=== PATIENT | female | born 1940 | race Caucasian/White ===

== ENCOUNTER 2019-10-14 14:09 | Emergency (ER) | payer BC, MEDICARE ==
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
--- OUTSIDE RECORDS SUMMARY | 2019-10-14 14:44 | XMS REPORT | Continuity of Care Document ---
:1940 External Reference #:[id number] Author Name Chelle Lin MD Address [address] [place] [address] Problems Active Problems Provider Date Benign essential hypertension Chelle Lin MD Onset: 02/16/2007 Pure hypercholesterolemia Chelle Lin MD Onset: 02/16/2007 Chronic pain syndrome Chelle Lin MD Onset: 04/16/2013 Peptic reflux disease Chelle Lin MD Onset: 05/21/2007 Generalized anxiety disorder Chelle Lin MD Onset: 03/03/2015 Type 2 diabetes mellitus Chelle Lin MD Onset: 08/07/2017 Mixed hyperlipidemia Chelle Lin MD Onset: 01/02/2017 Social History Type Date Description Comments Sex Unknown Tobacco Use Start: Unknown Patient is a current cigarette smoker, smokes every day Cigarette Use Pack Years - 30 Tobacco Use Start: Unknown Patient is a current smoker, smokes every day Smoking Status Reviewed: 09/13/19 Patient is a current smoker, smokes every day Allergies, Adverse Reactions, Alerts Active Allergies Reaction Severity Comments Date Naprosyn Syncopy 11/16/2004 Medications Active Medications SIG Qnty Indications Ordering Date Provider Diclofenac Sodium apply 1 gram per 100units M25.511 Chelle Lin 09/13 1% joint four times MD [facility] Gel a day as needed for pain Oxygen prn J44.9 Chelle Lin 09/13/2019 MD [facility] Nebulizer J44.9 Chelle Lin 09/13/2019 Misc MD [facility] Shingrix 2 shot series 2units Z00.01 Chelle Lin 09/13/2019 50mcg/0.5ML MD [facility] Suspension Rec Freestyle Lite Test for fsbg every 100units E11.9 Chelle Lin 2018 day MD [facility] Strips Freestyle Lancets for fsbg every 100units E11.9 [facility] 2018 Misc day MD [facility] Aspirin-Dipyridamole Take One Capsule 180caps G45.9 [facility] 01/04 ER By Mouth Twice MD [facility] 25-200mg Caps ER Daily 12HR Atorvastatin Calcium take 1 tablet 90tabs E78.2 [facility] 2017 every night at M, 40mg Tablets bedtime Incruse Ellipta 1 p every day 30units J44.9 [facility] 09/03/2018 MD [facility] 62.5mcg/Inh Aerosol Gabapentin Take 1 Tablet By 90tabs M54.12 [facility] 01/02/2017 800mg Mouth Three MD [facility] Tablets Times A Day Omeprazole take 1 capsule 60caps K21.0 [facility] 01/02/2017 40mg by mouth twice a M, Capsules DR day Zyrtec Allergy 1 by mouth every 30caps J30.1 [facility] 06/24/2016 10mg day MD [facility] Capsules Fluticasone 2 sprays in each 16units R09.82 [facility] 04/13/2015 Propionate nostril daily MD [facility] 50mcg/Act Suspension Vitamin D 2 po qd E55.9 [facility] 12/17/2013 2000Unit MD [facility] Tablets Proair HFA 2 p four times a 8.5units R05 [facility] 09/24/2013 108(90Base) day as needed MD [facility] mcg/Act Aerosol Metoprolol Succinate Take 1 Tablet By 90tabs I10 [facility] 2011 ER Mouth Once Daily MD [facility] 50mg Tablets ER 24HR Sertraline HCL take 1 tablet by 90tabs F41.1 [facility]2010 50mg mouth once daily MD [facility] Tablets Vitamin B-12 1 po qd D51.9 [facility] 07/08/2009 1000mcg MD [facility] Tablets Medications Administered in Office Medication SIG Qnty Indications Ordering Provider Date Depo Medrol 40 MG Chelle Lin MD 01/19/2004 Injection Immunizations CPT Code Status Date Vaccine Lot # [id number] Given 09/13/2019 Tdap (Adacel) Ages 7 And Above Only 20071 Given 09/02/2019 Influenza Vac, Quadrivalent, Split, 0.5mL Dosage, Im Use 47537 Given 07/12/2018 Fluzone Highdose Age 65 And Over Preservative & Antibiotic Free 17637 Given 08/07/2017 Influenza Vac, Quadrivalent, Split, 0.5mL Dosage, [id number] Im Use 09210 Given 09/02/2016 Influenza Vac, Quadrivalent, Split, 0.5mL Dosage, [id number] Im Use 43612 Given 03/20/2015 Prevnar 13 Pneumococal Conjugate Vaccine [id number] Q2038 Given 08/07/2014 Fluzone Trivalent Immunization [id number] Q2038 Given 07/05/2013 Fluzone Trivalent Immunization [id number] Q2038 Given 06/29/2012 Fluzone Trivalent Immunization [id number] Q2038 Given 07/21/2011 Fluzone Trivalent Immunization [id number] 71410 Given 06/29/2010 Afluria Or Fluvirin Flu Vac Intramuscular [id number] 01093 Given 10/06/2009 Influenza Virus Vaccine Pandemic Formulation - [id number] 24878 Given 07/07/2009 Afluria Or Fluvirin Flu Vac Intramuscular [id number] 05574 Given 11/07/2008 Tdap (Adacel) Ages 7 And Above Only [id number] 44874 Given 09/01/2008 Afluria Or Fluvirin Flu Vac Intramuscular [id number] 95620 Given 10/02/2007 Afluria Or Fluvirin Flu Vac Intramuscular 73841 Given 07/09/2007 Zoster (Zostavax) 85077 Given 07/09/2007 Zoster (Zostavax) 19985 Given 07/09/2007 Zoster (Zostavax) [id number] 00797 Given 09/26/2006 Pneumococcal 23 Immunization Adult Or [id number] Immunosuppressed Patient 48877 Given 09/26/2006 Afluria Or Fluvirin Flu Vac Intramuscular [id number] 21984 Given 08/05/2005 Afluria Or Fluvirin Flu Vac Intramuscular [id number] 90222 Given 08/12/2004 Afluria Or Fluvirin Flu Vac Intramuscular 80371 Given 07/28/2003 Afluria Or Fluvirin Flu Vac Intramuscular 53609 Given 08/08/2002 Pneumococcal 23 Immunization Adult Or Immunosuppressed Patient 50203 Given 08/08/2002 Afluria Or Fluvirin Flu Vac Intramuscular Vital Signs Date Vital Result Comment 09/13/2019 1:11pm Weight 177.00 lb Heart Rate 80 /min BP Systolic 108 mmHg BP Diastolic 62 mmHg Height 62.5 inches 5'2.50" BMI (Body Mass Index) 31.9 kg/m2 06/28/2019 1:51pm Body Temperature 97.0 F Weight 175.00 lb Heart Rate 88 /min BP Systolic 110 mmHg BP Diastolic 66 mmHg Height 62.5 inches 5'2.50" BMI (Body Mass Index) 31.5 kg/m2 Results Test Acquired Date Facility Test Result H/L Range Note Laboratory test 09/13/2019 [facility] Hemoglobin A1c <pending> finding Laboratory test 09/13/2019 [facility] Vit D 25Oh <pending> finding Vitamin B12 <pending> TSH <pending> CBC with Auto Diff-fcmg 06/28/2019 [facility] WBC 5.5 K/uL 4.1-11.0 1 RBC 4.73 M/uL 4.00-5.40 Hemoglobin 15.6 gm/dL 12.0-16.0 Hematocrit 46.3 % 36.0-47.0 MCV 97.9 fL High 80.0-97.0 MCH 33.1 pg High 27.0-32.0 MCHC 33.8 g/dL 32.0-36.0 RDW 13.9 % 11.5-14.5 PLT Count 252 K/ul 140-400 MPV 7.5 FL 7.1-10.7 Neutrophil 53.1 % 35.0-75.0 Lymphocyte 33.2 % 16.0-52.0 Monocyte 9.5 % 2.0-10.0 Eosinophil 3.4 % 0.0-5.0 Basophil 0.8 % 0.0-4.0 Abs Neutrophils 2.9 K/uL 2.1-8.0 Abs Lymphocytes 1.8 K/uL 0.8-5.5 Abs Monocytes 0.5 K/uL 0.1-1.0 Abs Eosinophils 0.2 K/uL 0.0-0.5 Abs Basophils 0.0 K/uL 0.0-0.3 Comprehensive Met Panel-[facility] 06/28/2019 [facility] Sodium 140 mmol/L 135- 146 2 Potassium 5.2 mmol/L 3.5-5.2 Chloride# 100 mmol/L 97-110 3 Carbon Dioxide 27 mmol/L 24-34 Calcium 9.7 mg/dL 8.5-10.5 4 Glucose 114 mg/dL High 70-105 BUN 16 mg/dL 6-26 Creatinine 0.8 mg/dL 0.5-1.4 Total Protein 7.7 g/dL 6.0-8.0 Albumin 4.2 g/dL 3.6-4.9 Globulin 3.5 g/dL 2.0-3.5 A/G Ratio 1.2 Ratio 1.0-2.2 Total Bilirubin 0.5 mg/dL 0.1-1.3 Alkaline Phosphatase 41 U/L 24-140 Alt 35 U/L 3-42 Ast 32 U/L 8-42 Anion Gap 13 mmol/L 5-15 5 Female Egfr 69 >60 6 Male Egfr 85 >60 7 Laboratory test 06/28/2019 [facility] TSH 2.22 uIU/mL 0.35-4.94 finding Hemoglobin A1c 06/28/2019 [facility] Hemoglobin A1c 6.7 % High 4.1-5.9 Estimated Average Glucose Calc 146 mg/dL High 71-140 Laboratory test finding 06/28/2019 [facility] Lipase 25 U/L 11-82 Amylase 41 U/L 29-103 Basic (BMP) 05/13/2019 [facility] Sodium 145 mmol/L 135-146 8, 9 Potassium 5.0 mmol/L 3.5-5.2 Chloride# 105 mmol/L 97-110 10 Carbon Dioxide 33 mmol/L 24-34 Glucose 117 mg/dL High 70-105 BUN 18 mg/dL 6-26 Creatinine 0.9 mg/dL 0.5-1.4 Calcium 9.6 mg/dL 8.5-10.5 11 Female Egfr 65 >60 12 Male Egfr 84 >60 13 Anion Gap 7 mmol/L 5-15 14 Hemoglobin A1c 05/13/2019 [facility] Hemoglobin A1c 6.7 % High 4.1-5.9 Estimated Average Glucose Calc 146 mg/dL High 71-140 Lipid Treatment 05/13/2019 [facility] Cholesterol 134 mg/dL 50-199 Triglycerides 190 mg/dL 30-200 HDL 38 mg/dL 35-85 15 Chol/ HDL Ratio 3.5 ratio Low 3.7-5.6 VLDL 38 mg/dL High 2-29 LDL (Calc) 58 mg/dL 20-99 16 Alt 45 U/L High 3-42 Ast 35 U/L 8-42 1 This sample is drawn by:[facility]. 2 Updated reference range on new analyzer 3 Updated reference range on new analyzer 4 Updated reference range 02-20-2019 5 Updated Reference Range 6 Concerning GFR Guidelines for Americans: Normal function or mild renal disease, if clinically at risk: >/= 60 mL/min Moderately decreased: 30-59 Severely decreased: 15-29 Renal failure: <15 There is reduced accuracy above 60ml/min/1.73 m squared, but the numeric value may be clinically useful in the near 60 range 7 Concerning GFR Guidelines: Normal function or mild renal disease, if clinically at risk: >/= 60 mL/min Moderately decreased: 30-59 Severely decreased: 15-29 Renal failure: <15 There is reduced accuracy above 60ml/min/1.73 m squared, but the numeric value may be clinically useful in the near 60 range Glomerular Filtration Rate (GFR) is estimated based on the CKD-EPI equation, which assumes a steady state for creatinine as recommended by the National Kidney Disease Education Program in conjunction with the National Institutes of Health and the National Kidney Foundation. Clinical conditions in which it may be necessary to measure GFR by using clearance methods include extremes of age and body size, severe malnutrition or obesity, diseases of skeletal muscle, paraplegia or quadriplegia, vegetarian diet, rapidly changing kidney function, and calculation of the dose of potentially toxic drugs that are excreted by the kidneys. 8 Specimen received unspun This sample is drawn by: 9 Updated reference range on new analyzer 10 Updated reference range on new analyzer 11 Updated reference range 02-20-2019 12 Concerning GFR Guidelines for Americans: Normal function or mild renal disease, if clinically at risk: >/= 60 mL/min Moderately decreased: 30-59 Severely decreased: 15-29 Renal failure: <15 There is reduced accuracy above 60ml/min/1.73 m squared, but the numeric value may be clinically useful in the near 60 range 13 Concerning GFR Guidelines: Normal function or mild renal disease, if clinically at risk: >/= 60 mL/min Moderately decreased: 30-59 Severely decreased: 15-29 Renal failure: <15 There is reduced accuracy above 60ml/min/1.73 m squared, but the numeric value may be clinically useful in the near 60 range Glomerular Filtration Rate (GFR) is estimated based on the CKD-EPI equation, which assumes a steady state for creatinine as recommended by the National Kidney Disease Education Program in conjunction with the National Institutes of Health and the National Kidney Foundation. Clinical conditions in which it may be necessary to measure GFR by using clearance methods include extremes of age and body size, severe malnutrition or obesity, diseases of skeletal muscle, paraplegia or quadriplegia, vegetarian diet, rapidly changing kidney function, and calculation of the dose of potentially toxic drugs that are excreted by the kidneys. 14 Updated Reference Range -2017 15 Per NCEP ATP III Guidelines: Results lower than 40 mg/dL are suggestive of increased risk for coronary artery disease. Results > or = to 60 mg/dL are considered a negative risk factor. 16 Per NCEP ATP III Guidelines: Normal Population <130 Patients with medical conditions: CHD/DM Optimal: <100 Borderline high: 130-159 High: 160-189 Very high: >189 Procedures Date Code Description Status 02/12/2019 [id number] Mammogram Completed 11/02/2017 [id number] Bone Mineral Density Test Completed 11/02/2017 [id number] Mammogram Completed 02/16/2016 [id number] Mammogram Completed 02/11/2015 [id number] Mammogram Completed 12/30/2013 [id number] Mammogram Completed 12/27/2012 [id number] Mammogram Completed 08/09/2011 [id number] Bone Mineral Density Test Completed 08/09/2011 [id number] Mammogram Completed 09/09/2010 [id number] Colonoscopy Completed 01/28/2010 [id number] Mammogram Completed Medical Devices Description No Information Available Encounters Type Date Location Provider Dx Diagnosis Office Visit 06/28/2019 Chelle Hayden E66.9 Obesity, unspecified 1:45p MD [facility] Z68.31 Body mass index (BMI) 31.0-31.9, adult R53.83 Other fatigue R51 Headache G50.1 Atypical facial pain E11.9 Type 2 diabetes mellitus without complications M54.12 Radiculopathy, cervical region R10.816 Epigastric abdominal tenderness Office Visit 05/13/2019 2:00p Chelle Hayden E66.9 Obesity, unspecified MD [facility] E11.9 Type 2 diabetes mellitus without complications I10 Essential (primary) hypertension F41.1 Generalized anxiety disorder E78.2 Mixed hyperlipidemia F17.210 Nicotine dependence, cigarettes, uncomplicated Z68.32 Body mass index (BMI) 32.0-32.9, adult Assessments Date Code Description Provider 09/13/2019 E66.9 Obesity, unspecified Chelle Lin MD 09/13/2019 Z00.01 Encounter for general adult medical Chelle Lni MD examination with abnormal findings 09/13/2019 E11.9 Type 2 diabetes mellitus without Chelle Lin MD complications 09/13/2019 G50.1 Atypical facial pain Chelle Lin MD 09/13/2019 M54.12 Radiculopathy, cervical region Chelle Lin MD 09/13/2019 I10 Essential (primary) hypertension Chelle Lin MD 09/13/2019 E78.2 Mixed hyperlipidemia Chelle Lin MD 09/13/2019 F41.1 Generalized anxiety disorder Chelle Lin MD 09/13/2019 E55.9 Vitamin D deficiency, unspecified Chelle Lin MD 09/13/2019 G45.9 Transient cerebral ischemic attack, Chelle Lin MD unspecified 09/13/2019 F17.210 Nicotine dependence, cigarettes, Chelle Lin MD uncomplicated 09/13/2019 D51.9 Vitamin B12 deficiency anemia, unspecified Chelle Lin MD 09/13/2019 J44.9 Chronic obstructive pulmonary disease, Chelle Lin MD unspecified 09/13/2019 Z12.2 Encounter for screening for malignant Chelle Lin MD neoplasm of respirator 09/13/2019 Z12.31 Encounter for screening mammogram for Chelle Lin MD malignant neoplasm of breast 09/13/2019 K21.0 Gastro-esophageal reflux disease with Chelle Lin MD esophagitis 09/13/2019 M25.511 Pain in RIGHT shoulder Chelle Lin MD 09/13/2019 Z13.9 Encounter for screening, Chelle Monique MD 09/13/2019 R25.1 Tremor, unspecified Chelle Lin MD 09/13/2019 Z68.31 Body mass index (BMI) 31.0-31.9, adult Chelle Lin MD 06/28/2019 E66.9 Obesity, unspecified Chelle Lin MD 06/28/2019 Z68.31 Body mass index (BMI) 31.0-31.9, adult Chelle Lin MD 06/28/2019 R53.83 Other fatigue Chelle Lin MD 06/28/2019 E11.9 Type 2 diabetes mellitus without [facility] complications 06/28/2019 R51 Headache Chelle Lin MD 06/28/2019 G50.1 Atypical facial pain Chelle Lin MD 06/28/2019 E11.9 Type 2 diabetes mellitus without Chelle Lin MD complications 06/28/2019 M54.12 Radiculopathy, cervical region Chelle Lin MD 06/28/2019 R10.816 Epigastric abdominal tenderness Chelle Lin MD 06/28/2019 E66.9 Obesity, unspecified [facility] 06/28/2019 R53.83 Other fatigue [facility] 06/28/2019 R10.816 Epigastric abdominal tenderness [facility] 05/13/2019 E66.9 Obesity, unspecified Chelle Lin MD 05/13/2019 E11.9 Type 2 diabetes mellitus without Chelle Lin MD complications 05/13/2019 I10 Essential (primary) hypertension Chelle Lin MD 05/13/2019 F41.1 Generalized anxiety disorder Chelle Lin MD 05/13/2019 E78.2 Mixed hyperlipidemia Chelle Lin MD 05/13/2019 F17.210 Nicotine dependence, cigarettes, Chelle Lin MD uncomplicated 05/13/2019 Z68.32 Body mass index (BMI) 32.0-32.9, adult Chelle Lin MD 05/13/2019 E11.9 Type 2 diabetes mellitus without [facility] complications Plan of Treatment Future Appointment(s):01/13/2020 1:00 pm - Chelle Lin MD at [place] Functional Status Description No Information Available Mental Status Description No Information Available Referrals Description No Information Available
--- OUTSIDE RECORDS SUMMARY | 2019-10-14 14:44 | XMS REPORT | Continuity of Care Document ---
:1940 Author Organization [facility] Care Team Providers Name Role Phone GUILLERMO ESTEVES Consulting Physician SPENSER GARSIA Primary Care Physician Allergies and Intolerances Code Code Allergy Type Reaction Severity Start End Status System Substance Date Date 7258 RXNorm Naproxen Drug allergy on aggrenox Moderate 05/19/19 Active (disorder) 42 0561205 RXNorm Nickel Propensity to rash Moderate 05/19/19 Active adverse 42 reactions to drug (disorder) 8429591 RXNorm Latex Allergy to rash Moderate 05/19/19 Active substance 42 (disorder) RXNorm MISC-DRUG Propensity to rash Moderate 05/19/19 Active adverse 42 reactions to drug (disorder) RXNorm Adhesive Drug allergy rash Moderate 05/19/19 Active Bandage (disorder) 42 Medications RxNorm Medication Dose Route Instructions Start End Status Date Date 25900523 12 HR Aspirin 25 1 cap oral orally 2 times Active MG / Dipyridamole per day 200 MG Extended Release Oral Capsule 20930529 Acetaminophen 325 650 MG ORAL EVERY 4 HOURS 08/26/20 Active MG Oral Tablet NEEDED as 19 [Tylenol] needed. (ADMINISTER FOR MILD PAIN) 9560816 Albuterol 0.833 3 ML INHALATION 4 TIMES A DAY Active MG/ML / RESPIRATORY Ipratropium THERAPY Vilonia 0.167 MG/ML Inhalation Solution 347383 atorvastatin 40 MG 40 mg oral orally every Active Oral Tablet day at bedtime 1588 Biotin 1250 mcg oral orally every Active evening 771394 Budesonide 0.125 0.25 MG INHALATION TWICE A DAY Active MG/ML Inhalation RESPIRATORY Suspension THERAPY 2418 Cholecalciferol 98551 oral orally 2 times Active unit per day 276580 Diclofenac Sodium 1 SM TOPICAL 4 TIMES A DAY Active 0.01 MG/MG Topical AMOUNT (TO POSTERIOR Gel RIGHT SHOULDER AND NECK) 121513 gabapentin 800 MG 800 mg oral orally 3 times Active Oral Tablet per day 853371 Levalbuterol 0.417 1.25 MG INHALATION EVERY 4 HOURS 08/30/20 Active MG/ML Inhalation as needed. 19 Solution (SHORTNESS OF BREATH) 19980527 Levofloxacin 500 500 mg oral orally daily Active MG Oral Tablet (For 5 days) 18 Metoprolol 50 mg oral orally every Active evening 20021201 Omeprazole 40 MG 40 mg oral orally 2 times Active Delayed Release per day Oral Capsule 600598 Prednisone 20 MG 40 MG ORAL ONCE A DAY 08/30/20 Active Oral Tablet (TAKE WITH 19 FOOD) 835954 Sertraline 50 MG 50 mg oral orally every Active Oral Tablet day at bedtime 91100 Vitamin B 12 1000 mcg oral orally every Active day at bedtime 6809 Metformin 1000 mg oral orally daily Completed (dinnertime) Medications At Time Of Discharge RxNorm Medication Dose Route Instructions Start End Status Date Date 25900523 12 HR Aspirin 25 MG 1 cap oral orally 2 times Active / Dipyridamole 200 per day MG Extended Release Oral Capsule 20930529 Acetaminophen 325 650 MG ORAL EVERY 4 HOURS 08/26/20 Active MG Oral Tablet NEEDED as 19 [Tylenol] needed. (ADMINISTER FOR MILD PAIN) 5095162 Albuterol 0.833 3 ML INHALATION 4 TIMES A DAY Active MG/ML / Ipratropium RESPIRATORY Vilonia 0.167 MG/ML THERAPY Inhalation Solution 957658 atorvastatin 40 MG 40 mg oral orally every Active Oral Tablet day at bedtime 1588 Biotin 1250 mcg oral orally every Active evening 720490 Budesonide 0.125 0.25 MG INHALATION TWICE A DAY Active MG/ML Inhalation RESPIRATORY Suspension THERAPY 2418 Cholecalciferol 65588 unit oral orally 2 times Active per day 754055 Diclofenac Sodium 1 SM TOPICAL 4 TIMES A DAY Active 0.01 MG/MG Topical AMOUNT (TO POSTERIOR Gel RIGHT SHOULDER AND NECK) 866589 gabapentin 800 MG 800 mg oral orally 3 times Active Oral Tablet per day 691575 Levalbuterol 0.417 1.25 MG INHALATION EVERY 4 HOURS 08/30/20 Active MG/ML Inhalation as needed. 19 Solution (SHORTNESS OF BREATH) 19980527 Levofloxacin 500 MG 500 mg oral orally daily Active Oral Tablet (For 5 days) 18 Metoprolol 50 mg oral orally every Active evening 20021201 Omeprazole 40 MG 40 mg oral orally 2 times Active Delayed Release per day Oral Capsule 950124 Prednisone 20 MG 40 MG ORAL ONCE A DAY 08/30/20 Active Oral Tablet (TAKE WITH 19 FOOD) 383853 Sertraline 50 MG 50 mg oral orally every Active Oral Tablet day at bedtime 62613 Vitamin B 12 1000 mcg oral orally every Active day at bedtime Problems Code Code System Problem Name Start Date End Date Status 060398348 SNOMED-CT 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/26/2019 Active obstructive airways disease 468494147 SNOMED-CT Acute hypoxemic respiratory failure 08/26/2019 Active 008494147 SNOMED-CT 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 47922367 SNOMED-CT Hypercapnia 02/23/2015 U Active 4769111 SNOMED-CT Delirium 02/23/2015 U Active 20272583 SNOMED-CT Hypertensive disorder U Active 475381030 SNOMED-CT Gastroesophageal reflux disease U Active 025067688 SNOMED-CT Asthma U Active 30954104 SNOMED-CT Anxiety U Active 56707956 SNOMED-CT Hypercholesterolemia U Active 082815214 SNOMED-CT Transient cerebral ischemia U Active 50146745 SNOMED-CT Hearing loss U Active Procedures Code Code System Procedure Date BACK SURGERY [place] 72312467 [place]OM[address] [place] Appendectomy [place] 83884687 SN[address] Cholecystectomy U 699324319 SNOMED CT Hysterectomy U Results Laboratory Results Order: A1C Specimen Source: Body Site: Legend: (G,H) = High, (GG,HH,CH,#H) = Above High Threshold, (#,L) = Low, (##,CL, #L,LL) = Below Low Threshold, (C,CC,CA,#A,A) = Abnormal LOINC Test Result Flag Range Units Date 04445-4 1Hgb A1c Bld 6.3 H 4.8-6.0 % 08/27/2019 06:08 Performing Lab Footnotes:[facility] - [id number] - [address] [place] [address] ESTEVAN ERAZO Order: AMMONIA Specimen Source: Body Site: Legend: (G,H) = High, (GG,HH ,CH,#H) = Above High Threshold, (#,L) = Low, (##,CL,#L,LL) = Below Low Threshold , (C,CC,CA,#A,A) = Abnormal LOINC Test Result Flag Range Units Date 34096-8 1Ammonia Plas-sCnc 31 10-35 umol/L 08/27/2019 06:08 Performing Lab Footnotes:[facility] - [id number] - [address] [place] [address] ESTEVAN LINDERCIOMD1 Order: LACTIC ACID Specimen Source: Body Site: Legend: (G,H) = High, ( GG,HH,CH,#H) = Above High Threshold, (#,L) = Low, (##,CL,#L,LL) = Below Low Threshold, (C,CC,CA,#A,A) = Abnormal LOINC Test Result Flag Range Units Date 11618-8 1Lactate PlasV-sCnc 3.0 H 0.5-2.2 mmol/L 08/27/2019 06:08 Performing Lab Footnotes:[facility] - [id number] - [address] [place] [address] ESTEVAN LINDERCIOMD1 Order: VIT D 25 HYDROXY Specimen Source: Body Site: Legend: (G,H) = High, (GG,HH,CH,#H) = Above High Threshold, (#,L) = Low, (##,CL,#L,LL) = Below Low Threshold, (C,CC,CA,#A,A) = Abnormal LOINC Test Result Flag Range Units Date 65255-8 1Vit D+metab SerPl-mCnc 74 30-95 NG/ML 08/27/2019 06:08 Interpretive 1VITAMIN D STATUS VITAMIN D Level Nayana: DEFICIENCY <20 NG/ML INSUFFICIENCY 20-30 NG/ML SUFFICIENCY 31-96 NG/ML POTENTIAL TOXICITY >96 NG/ML Performing Lab Footnotes:[facility] - [id number] - [address] [place] [address] ESTEVAN ERAZO Order: ABG (Arterial Blood Gas) Specimen Source: Body Site: Legend: (G, H) = High, (GG,HH,CH,#H) = Above High Threshold, (#,L) = Low, (##,CL,#L,LL) = Below Low Threshold, (C,CC,CA,#A,A) = Abnormal LOINC Test Result Flag Range Units Date 41493-9 1Test performance FIO2- .21 Dev- 08/26/2019 info XXX RA 18:40 2744-1 1pH BldA 7.33 L 7.37-7.44 08/26/2019 18:40 2019-8 1pCO2 BldA 52.3 H 35.0-50.0 mmHG 08/26/2019 18:40 2703-7 1pO2 BldA 62.9 L 95.0-100.0 mmHG 08/26/2019 18:40 66769-5 1Base excess Bld-sCnc 1.0 -3.0-3.0 mmol./L 08/26/2019 18:40 1960-4 1HCO3 BldA-sCnc 27.50 21.00-32.00 mmol/L 08/26/2019 18:40 6-3 1CO2 BldA-sCnc 29.1 H 19.0-24.0 mmol/L 08/26/2019 18:40 20564-[address] BldA-sCnc 83.0 L 94.0-100.0 % 08/26/2019 18:40 718-7 1Hgb Bld-mCnc 14.9 12.0-16.0 gm/dL 08/26/2019 18:40 52443-2 1Gas + CO Pnl Bld 0.3 0.0-1.5 %THB 08/26/2019 18:40 Interpretive Nayana: 1Carbon Monoxide Range 1.5% - Suburban Non-Smokers 1.5- 5.0% - Smokers 5.0-9.0% - Heavy Smokers 20% - Moderate Symptoms 30% - Severe Symptoms 40-60% - May Occur 2615-3 1MetHgb MFr BldA 1.1 <=3.0 %THB 08/26/2019 18:40 18127-6 1OxyHgb MFr Bld 82.0 L 94.0-100.0 % 08/26/2019 18:40 Performing Lab Footnotes:[facility] - [id number] - [address] [place] [address] ESTEVAN ERAZO Order: UTOX URINE DRUG SCREEN Specimen Source: Body Site: Legend: (G,H ) = High, (GG,HH,CH,#H) = Above High Threshold, (#,L) = Low, (##,CL,#L,LL) = Below Low Threshold, (C,CC,CA,#A,A) = Abnormal LOINC Test Result Flag Range Units Date 55475-1 1Amphet Ur Ql Scn NEGATIVE NEGATIVE 08/26/2019 18:06 3374-6 1Barbiturate Scn Present Ur NEGATIVE NEGATIVE 08/26/2019 18:06 01956-8 1Benzodiaz metab Ur Ql Scn NEGATIVE NEGATIVE 08/26/2019 18:06 3879-4 1Opiates Ur Ql NEGATIVE NEGATIVE 08/26/2019 18:06 3397-7 1Cocaine Ur Ql NEGATIVE NEGATIVE 08/26/2019 18:06 69902-7 111OH-THC Ur Ql Scn NEGATIVE NEGATIVE 08/26/2019 18:06 03769-3 1PCP Ur Scn-mCnc NEGATIVE NEGATIVE 08/26/2019 18:06 21296-0 1Methadone Ur Ql Scn NEGATIVE NEGATIVE 08/26/2019 18:06 1A Positive Drug Screen will not be Confirmed unless requested by the Physician. Please contact the Lab ([phone]) within 5 days for Confirmation Testing. Performing Lab Footnotes:[facility] - [id number] - [address] [place] [address] ESTEVAN ERAZO Order: AMMONIA Specimen Source: Body Site: Legend: (G,H) = High, (GG,HH ,CH,#H) = Above High Threshold, (#,L) = Low, (##,CL,#L,LL) = Below Low Threshold , (C,CC,CA,#A,A) = Abnormal LOINC Test Result Flag Range Units Date 98152-3 1Ammonia Plas-sCnc 45 H 10-35 umol/L 08/26/2019 15:50 Performing Lab Footnotes:[facility] - [id number] - [address] [place] [address] ESTEVAN ASHEROMVinicius Order: CBC DIFF Specimen Source: Body Site: Legend: (G,H) = High, (GG, HH,CH,#H) = Above High Threshold, (#,L) = Low, (##,CL,#L,LL) = Below Low Threshold, (C,CC,CA,#A,A) = Abnormal LOINC Test Result Flag Range Units Date 902 1WBC # Bld Auto 8.0 4.8-10.8 K/uL 08/26/2019 15:50 57721-1 1RBC # Bld 4.37 4.20-5.40 M/uL 08/26/2019 15:50 718-7 1Hgb Bld-mCnc 14.6 12.0-16.0 gm/dL 08/26/2019 15:50 4544-3 1Hct VFr Bld Auto 44.1 36.0-48.0 % 08/26/2019 15:50 787-2 1MCV RBC Auto 101.0 H 80.0-100.0 fL 08/26/2019 15:50 01638-1 1MCHC RBC-mCnc 33.2 30.0-36.5 % 08/26/2019 15:50 28784-4 1MCH RBC Qn 33.5 27.0-34.0 pg 08/26/2019 15:50 74414-7 1RDW RBC 12.1 11.0-15.0 % 08/26/2019 15:50 777-3 1Platelet # Bld Auto 185 130-450 K/uL 08/26/2019 15:50 92522-2 1PMV Bld Auto 6.5 6.0-12.0 fL 08/26/2019 15:50 751-8 1Neutrophils # Bld Auto 83 H 37-80 % 08/26/2019 15:50 43576-7 1Lymphocytes NFr Bld 12 10-50 % 08/26/2019 15:50 5905-5 1Monocytes NFr Bld Auto 5 0-12 % 08/26/2019 15:50 21243-5 1Eosinophil # Bld 0 <=8 % 08/26/2019 15:50 704-7 1Basophils # Bld Auto 0 <=3 % 08/26/2019 15:50 76280-1 1Neutrophils # Bld 6.7 1.8-8.6 K/uL 08/26/2019 15:50 731-0 1Lymphocytes # Bld Auto 1.0 0.5-5.0 K/uL 08/26/2019 15:50 742-7 1Monocytes # Bld Auto 0.4 0.0-1.3 K/uL 08/26/2019 15:50 23258-7 1Eosinophil # Bld 0.0 0.0-0.9 K/uL 08/26/2019 15:50 704-7 1Basophils # Bld Auto 0.0 0.0-0.3 K/ul 08/26/2019 15:50 Performing Lab Footnotes:[facility] - [id number] - [address] [place] [address] ESTEVAN Wood LAKESHIAOMVinicius Order: COMPREHENSIVE PANEL Specimen Source: Body Site: Legend: (G,H) = High, (GG,HH,CH,#H) = Above High Threshold, (#,L) = Low, (##,CL,#L,LL) = Below Low Threshold, (C,CC,CA,#A,A) = Abnormal LOINC Test Result Flag Range Units Date 2951-2 1Sodium SerPl-sCnc 142 136-145 mmol/L 08/26/2019 15:50 2823-3 1Potassium SerPl-sCnc 3.9 3.5-5.2 mmol/L 08/26/2019 15:50 2075-0 1Chloride SerPl-sCnc 102 100-108 mmol/L 08/26/2019 15:50 2028-9 1CO2 SerPl-sCnc 30 21-32 mmol/L 08/26/2019 15:50 2345-7 1Glucose SerPl-mCnc 250 H 70-100 mg/dL 08/26/2019 15:50 3094-0 1BUN SerPl-mCnc 16 7-21 mg/dL 08/26/2019 15:50 2160-0 1Creat SerPl-mCnc 0.8 0.6-1.3 mg/dL 08/26/2019 15:50 Interpretive Nayana: 1Normal Kidney Function or Mild Disease - GFR >OR= 60 Chronic Kidney Disease - GFR 15-59 Renal Failure - GFR < 15 GFR not calculated on patients under 18 years of age. Calculated (estimated) GFR is based on the MDRD Study equation, which assumes a steady state for creatinine. Estimated GFR may not be appropriate for medication dosing. 28685-9 1Ca-I SerPl-mCnc 9.7 8.5-10.8 mg/dL 08/26/2019 15:50 30844-4 1GFR/BSA.pred SerPl-ArVRat >60 08/26/2019 15:50 78999-3 1Bilirub Bld-mCnc 0.2 0.0-1.2 mg/dL 08/26/2019 15:50 2885-2 1Prot SerPl-mCnc 7.7 6.4-8.2 gm/dL 08/26/2019 15:50 1751-7 1Albumin SerPl-mCnc 4.0 3.2-4.6 gm/dL 08/26/2019 15:50 6768-6 1ALP SerPl-cCnc 52 40-150 U/L 08/26/2019 15:50 1742-6 1ALT SerPl-cCnc 22 0-55 U/L 08/26/2019 15:50 1920-8 1AST SerPl-cCnc 18 5-37 U/L 08/26/2019 15:50 Performing Lab Footnotes:[facility] - [id number] - [address] [place] [address] ESTEVAN ERAZO Order: LACTIC ACID Specimen Source: Body Site: Legend: (G,H) = High, ( GG,HH,CH,#H) = Above High Threshold, (#,L) = Low, (##,CL,#L,LL) = Below Low Threshold, (C,CC,CA,#A,A) = Abnormal LOINC Test Result Flag Range Units Date 24277-5 1Lactate PlasV-sCnc 3.0 H 0.5-2.2 mmol/L 08/26/2019 15:50 Performing Lab Footnotes:[facility] - [id number] - [address] [place] [address] ESTEVAN LINDERCIOMD1 Order: PT/INR Specimen Source: Body Site: Legend: (G,H) = High, (GG,HH, CH,#H) = Above High Threshold, (#,L) = Low, (##,CL,#L,LL) = Below Low Threshold , (C,CC,CA,#A,A) = Abnormal LOINC Test Result Flag Range Units Date 5902-2 1PT Time PPP 11.4 9.4-12.4 sec 08/26/2019 15:50 6301-6 1INR PPP 1.0 08/26/2019 15:50 Interpretive Nayana: 1 INR INTERPERTATION 2.0-3.0 THERAPEUTIC MONITORING 2.5-3.5 HEART VALVE REPLACEMENT Performing Lab Footnotes:[facility] - [id number] - [address] [place] [address] ESTEVAN ERAZO Order: PTT Specimen Source: Body Site: Legend: (G,H) = High, (GG,HH,CH, #H) = Above High Threshold, (#,L) = Low, (##,CL,#L,LL) = Below Low Threshold, (C ,CC,CA,#A,A) = Abnormal LOINC Test Result Flag Range Units Date 3173-2 1aPTT Time Bld 27.2 25.6-36.4 sec 08/26/2019 15:50 Performing Lab Footnotes:[facility] - [id number] - [address] [place] [address] ESTEVAN ERAZO Order: Point of Care Glucose ACCUCHECK Specimen Source: Blood Body Site: Legend: (G,H) = High, (GG,HH,CH,#H) = Above High Threshold, (#,L) = Low, ( ##,CL,#L,LL) = Below Low Threshold, (C,CC,CA,#A,A) = Abnormal LOINC Test Result Flag Range Units Date 1GLUCOSE BedSide 255 H 70-100 mg/dL 08/26/2019 15:39 Test Comment: [id number] NICHOLE MCWILLIAMS Test Comment: 1Cleaned Meter Test Comment: 1RN Notified Performing Lab Footnotes:[facility] - [id number] - [address] [place] [address] ESTEVAN ASHEROMD1 Order: TROPONIN I Specimen Source: Body Site: Legend: (G,H) = High, (GG ,HH,CH,#H) = Above High Threshold, (#,L) = Low, (##,CL,#L,LL) = Below Low Threshold, (C,CC,CA,#A,A) = Abnormal LOINC Test Result Flag Range Units Date 52393-5 1Troponin I SerPl-mCnc 0.01 0.00-0.04 ng/mL 08/26/2019 11:55 Interpretive Nayana: 1 TROPONIN INTERPRETATION 0.00 - 0.04 ng/ml Normal 0.05 - 0.29 ng/ml [place] Zone, Uncertain for AMI Greater than 0.30 ng/ml Suggestive of AMI Performing Lab Footnotes:[facility] - [id number] - [address] [place] [address] ESTEVAN ASHEROMD1 Order: CBC DIFF Specimen Source: Body Site: Legend: (G,H) = High, (GG, HH,CH,#H) = Above High Threshold, (#,L) = Low, (##,CL,#L,LL) = Below Low Threshold, (C,CC,CA,#A,A) = Abnormal LOINC Test Result Flag Range Units Date 6690-2 1WBC # Bld Auto 6.2 4.8-10.8 K/uL 08/26/2019 04:00 40401-4 1RBC # Bld 4.22 4.20-5.40 M/uL 08/26/2019 04:00 718-7 1Hgb Bld-mCnc 14.4 12.0-16.0 gm/dL 08/26/2019 04:00 4544-3 1Hct VFr Bld Auto 42.7 36.0-48.0 % 08/26/2019 04:00 787-2 1MCV RBC Auto 101.0 H 80.0-100.0 fL 08/26/2019 04:00 57082-4 1MCHC RBC-mCnc 33.7 30.0-36.5 % 08/26/2019 04:00 01724-5 1MCH RBC Qn 34.1 H 27.0-34.0 pg 08/26/2019 04:00 35992-6 1RDW RBC 12.2 11.0-15.0 % 08/26/2019 04:00 777-3 1Platelet # Bld Auto 185 130-450 K/uL 08/26/2019 04:00 75963-8 1PMV Bld Auto 6.6 6.0-12.0 fL 08/26/2019 04:00 751-8 1Neutrophils # Bld Auto 89 H 37-80 % 08/26/2019 04:00 99255-9 1Lymphocytes NFr Bld 10 10-50 % 08/26/2019 04:00 5905-5 1Monocytes NFr Bld Auto 1 0-12 % 08/26/2019 04:00 34414-8 1Eosinophil # Bld 0 <=8 % 08/26/2019 04:00 704-7 1Basophils # Bld Auto 0 <=3 % 08/26/2019 04:00 12229-7 1Neutrophils # Bld 5.5 1.8-8.6 K/uL 08/26/2019 04:00 731-0 1Lymphocytes # Bld Auto 0.6 0.5-5.0 K/uL 08/26/2019 04:00 742-7 1Monocytes # Bld Auto 0.1 0.0-1.3 K/uL 08/26/2019 04:00 57595-5 1Eosinophil # Bld 0.0 0.0-0.9 K/uL 08/26/2019 04:00 704-7 1Basophils # Bld Auto 0.0 0.0-0.3 K/ul 08/26/2019 04:00 Performing Lab Footnotes:[facility] - [id number] - [address] [place] [address] ESTEVAN ASHEROMD1 Order: COMPREHENSIVE PANEL Specimen Source: Body Site: Legend: (G,H) = High, (GG,HH,CH,#H) = Above High Threshold, (#,L) = Low, (##,CL,#L,LL) = Below Low Threshold, (C,CC,CA,#A,A) = Abnormal LOINC Test Result Flag Range Units Date 2951-2 1Sodium SerPl-sCnc 142 136-145 mmol/L 08/26/2019 04:00 2823-3 1Potassium SerPl-sCnc 3.9 3.5-5.2 mmol/L 08/26/2019 04:00 2075-0 1Chloride SerPl-sCnc 103 100-108 mmol/L 08/26/2019 04:00 2028-9 1CO2 SerPl-sCnc 26 21-32 mmol/L 08/26/2019 04:00 2345-7 1Glucose SerPl-mCnc 213 H 70-100 mg/dL 08/26/2019 04:00 3094-0 1BUN SerPl-mCnc 12 7-21 mg/dL 08/26/2019 04:00 2160-0 1Creat SerPl-mCnc 0.8 0.6-1.3 mg/dL 08/26/2019 04:00 Interpretive Nayana: 1Normal Kidney Function or Mild Disease - GFR >OR= 60 Chronic Kidney Disease - GFR 15-59 Renal Failure - GFR < 15 GFR not calculated on patients under 18 years of age. Calculated (estimated) GFR is based on the MDRD Study equation, which assumes a steady state for creatinine. Estimated GFR may not be appropriate for medication dosing. 67723-9 1Ca-I SerPl-mCnc 9.2 8.5-10.8 mg/dL 08/26/2019 04:00 45178-3 1GFR/BSA.pred SerPl-ArVRat >60 08/26/2019 04:00 10046-2 1Bilirub Bld-mCnc 0.3 0.0-1.2 mg/dL 08/26/2019 04:00 2885-2 1Prot SerPl-mCnc 7.5 6.4-8.2 gm/dL 08/26/2019 04:00 1751-7 1Albumin SerPl-mCnc 4.0 3.2-4.6 gm/dL 08/26/2019 04:00 6768-6 1ALP SerPl-cCnc 48 40-150 U/L 08/26/2019 04:00 1742-6 1ALT SerPl-cCnc 27 0-55 U/L 08/26/2019 04:00 1920-8 1AST SerPl-cCnc 21 5-37 U/L 08/26/2019 04:00 Performing Lab Footnotes:[facility] - [id number] - [address] [place] [address] ESTEVAN Wood CASTRO Order: MAGNESIUM Specimen Source: Body Site: Legend: (G,H) = High, (GG, HH,CH,#H) = Above High Threshold, (#,L) = Low, (##,CL,#L,LL) = Below Low Threshold, (C,CC,CA,#A,A) = Abnormal LOINC Test Result Flag Range Units Date 1Magnesium SerPl-mCnc 1.7 1.7-2.6 mg/dL 08/26/2019 04:00 Performing Lab Footnotes:[facility] - [id number] - [address] [place] [address] ESTEVAN GREGORIOD1 Order: PT/INR Specimen Source: Body Site: Legend: (G,H) = High, (GG,HH, CH,#H) = Above High Threshold, (#,L) = Low, (##,CL,#L,LL) = Below Low Threshold , (C,CC,CA,#A,A) = Abnormal LOINC Test Result Flag Range Units Date 5902- 1PT Time PPP 11.9 9.4-12.4 sec 08/26/2019 04:00 6301-6 1INR PPP 1.1 08/26/2019 04:00 Interpretive Nayana: 1 INR INTERPERTATION 2.0-3.0 THERAPEUTIC MONITORING 2.5-3.5 HEART VALVE REPLACEMENT Performing Lab Footnotes:[facility] - [id number] [address] [address] ESTEVAN GREGORIOD1 Order: TROPONIN I Specimen Source: Body Site: Legend: (G,H) = High, (GG ,HH,CH,#H) = Above High Threshold, (#,L) = Low, (##,CL,#L,LL) = Below Low Threshold, (C,CC,CA,#A,A) = Abnormal LOINC Test Result Flag Range Units Date 66711-2 1Troponin I SerPl-mCnc 0.02 0.00-0.04 ng/mL 08/26/2019 04:00 Interpretive Naynaa: 1 TROPONIN INTERPRETATION 0.00 - 0.04 ng/ml Normal 0.05 - 0.29 ng/ml [place] Zone, Uncertain for AMI Greater than 0.30 ng/ml Suggestive of AMI Performing Lab Footnotes:[facility] - [id number] - [address] [place] [address] ESTEVAN ASHEROMD1 Order: TSH Specimen Source: Body Site: Legend: (G,H) = High, (GG,HH,CH, #H) = Above High Threshold, (#,L) = Low, (##,CL,#L,LL) = Below Low Threshold, (C ,CC,CA,#A,A) = Abnormal LOINC Test Result Flag Range Units Date 3016-3 1TSH SerPl-aCnc 0.87 0.34-4.82 uIU/mL 08/26/2019 04:00 Performing Lab Footnotes:[facility] - [id number] - [address] [place] [address] ESTEVAN ASHEROMD1 Order: B-TYPE NATRIURETIC PEPTID Specimen Source: Body Site: Legend: (G ,H) = High, (GG,HH,CH,#H) = Above High Threshold, (#,L) = Low, (##,CL,#L,LL) = Below Low Threshold, (C,CC,CA,#A,A) = Abnormal LOINC Test Result Flag Range Units Date 90243-9 1BNP SerPl-mCnc 18 0-100 pg/mL 08/25/2019 21:00 Performing Lab Footnotes:[facility] - [id number] - [address] [place] [address] ESTEVAN GREGORIOD1 Order: CBC DIFF Specimen Source: Body Site: Legend: (G,H) = High, (GG, HH,CH,#H) = Above High Threshold, (#,L) = Low, (##,CL,#L,LL) = Below Low Threshold, (C,CC,CA,#A,A) = Abnormal LOINC Test Result Flag Range Units Date 6690-2 1WBC # Bld Auto 6.6 4.8-10.8 K/uL 08/25/2019 21:00 79813-0 1RBC # Bld 4.47 4.20-5.40 M/uL 08/25/2019 21:00 718-7 1Hgb Bld-mCnc 15.0 12.0-16.0 gm/dL 08/25/2019 21:00 4544-3 1Hct VFr Bld Auto 44.5 36.0-48.0 % 08/25/2019 21:00 787-2 1MCV RBC Auto 99.6 80.0-100.0 fL 08/25/2019 21:00 11975-8 1MCHC RBC-mCnc 33.6 30.0-36.5 % 08/25/2019 21:00 10080-6 1MCH RBC Qn 33.5 27.0-34.0 pg 08/25/2019 21:00 94386-1 1RDW RBC 12.1 11.0-15.0 % 08/25/2019 21:00 777-3 1Platelet # Bld Auto 127 L 130-450 K/uL 08/25/2019 21:00 45497-0 1PMV Bld Auto 6.8 6.0-12.0 fL 08/25/2019 21:00 751-8 1Neutrophils # Bld Auto 79 37-80 % 08/25/2019 21:00 13687-4 1Lymphocytes NFr Bld 15 10-50 % 08/25/2019 21:00 5905-5 1Monocytes NFr Bld Auto 5 0-12 % 08/25/2019 21:00 61933-5 1Eosinophil # Bld 1 <=8 % 08/25/2019 21:00 704-7 1Basophils # Bld Auto 0 <=3 % 08/25/2019 21:00 22827-7 1Neutrophils # Bld 5.2 1.8-8.6 K/uL 08/25/2019 21:00 731-0 1Lymphocytes # Bld Auto 1.0 0.5-5.0 K/uL 08/25/2019 21:00 742-7 1Monocytes # Bld Auto 0.3 0.0-1.3 K/uL 08/25/2019 21:00 85119-1 1Eosinophil # Bld 0.1 0.0-0.9 K/uL 08/25/2019 21:00 704-7 1Basophils # Bld Auto 0.0 0.0-0.3 K/ul 08/25/2019 21:00 Performing Lab Footnotes:[facility] - [id number] - [address] [place] [address] ESTEVAN GREGORIOD1 Order: CK Specimen Source: Body Site: Legend: (G,H) = High, (GG,HH,CH,# H) = Above High Threshold, (#,L) = Low, (##,CL,#L,LL) = Below Low Threshold, (C, CC,CA,#A,A) = Abnormal LOINC Test Result Flag Range Units Date 2157-6 1CK SerPl-cCnc 65 21-215 U/L 08/25/2019 21:00 Performing Lab Footnotes:[facility] - [id number] - [address] [place] [address] ESTEVAN ERAZO Order: COMPREHENSIVE PANEL Specimen Source: Body Site: Legend: (G,H) = High, (GG,HH,CH,#H) = Above High Threshold, (#,L) = Low, (##,CL,#L,LL) = Below Low Threshold, (C,CC,CA,#A,A) = Abnormal LOINC Test Result Flag Range Units Date 2951-2 1Sodium SerPl-sCnc 143 136-145 mmol/L 08/25/2019 21:00 2823-3 1Potassium SerPl-sCnc 3.7 3.5-5.2 mmol/L 08/25/2019 21:00 2075-0 1Chloride SerPl-sCnc 103 100-108 mmol/L 08/25/2019 21:00 2028-9 1CO2 SerPl-sCnc 29 21-32 mmol/L 08/25/2019 21:00 2345-7 1Glucose SerPl-mCnc 145 H 70-100 mg/dL 08/25/2019 21:00 3094-0 1BUN SerPl-mCnc 13 7-21 mg/dL 08/25/2019 21:00 2160-0 1Creat SerPl-mCnc 0.8 0.6-1.3 mg/dL 08/25/2019 21:00 Interpretive Nayana: 1Normal Kidney Function or Mild Disease - GFR >OR= 60 Chronic Kidney Disease - GFR 15-59 Renal Failure - GFR < 15 GFR not calculated on patients under 18 years of age. Calculated (estimated) GFR is based on the MDRD Study equation, which assumes a steady state for creatinine. Estimated GFR may not be appropriate for medication dosing. 08740-0 1Ca-I SerPl-mCnc 9.4 8.5-10.8 mg/dL 08/25/2019 21:00 63275-2 1GFR/BSA.pred SerPl-ArVRat >60 08/25/2019 21:00 09699-6 1Bilirub Bld-mCnc 0.4 0.0-1.2 mg/dL 08/25/2019 21:00 2885-2 1Prot SerPl-mCnc 7.7 6.4-8.2 gm/dL 08/25/2019 21:00 1751-7 1Albumin SerPl-mCnc 4.1 3.2-4.6 gm/dL 08/25/2019 21:00 6768-6 1ALP SerPl-cCnc 52 40-150 U/L 08/25/2019 21:00 1742-6 1ALT SerPl-cCnc 28 0-55 U/L 08/25/2019 21:00 1920-8 1AST SerPl-cCnc 23 5-37 U/L 08/25/2019 21:00 Performing Lab Footnotes:[facility] - [id number] - [address] [place] [address] ESTEVAN Wood CASTRO Order: Influenza A&B PCR Specimen Source: Swab Body Site: Legend: (G,H) = High, (GG,HH,CH,#H) = Above High Threshold, (#,L) = Low, (##,CL,#L,LL) = Below Low Threshold, (C,CC,CA,#A,A) = Abnormal LOINC Test Result Flag Range Units Date 65977-1 1FLUAV RNA XXX Ql Not Detected Not Detected 08/25/2019 21:00 PCR 53866-6 1FLUBV RNA XXX Ql Not Detected Not Detected 08/25/2019 21:00 PCR Performing Lab Footnotes:[facility] - [id number] - [address] [place] [address] ESTEVAN ASHEROMD1 Order: PT/INR Specimen Source: Body Site: Legend: (G,H) = High, (GG,HH, CH,#H) = Above High Threshold, (#,L) = Low, (##,CL,#L,LL) = Below Low Threshold , (C,CC,CA,#A,A) = Abnormal LOINC Test Result Flag Range Units Date 5902- 1PT Time PPP 11.3 9.4-12.4 sec 08/25/2019 21:00 6301-6 1INR PPP 1.0 08/25/2019 21:00 Interpretive Nayana: 1 INR INTERPERTATION 2.0-3.0 THERAPEUTIC MONITORING 2.5-3.5 HEART VALVE REPLACEMENT Performing Lab Footnotes:[facility] - [id number] - [address] [place] [address] ESTEVAN ASHEROMD1 Order: TROPONIN I Specimen Source: Body Site: Legend: (G,H) = High, (GG ,HH,CH,#H) = Above High Threshold, (#,L) = Low, (##,CL,#L,LL) = Below Low Threshold, (C,CC,CA,#A,A) = Abnormal LOINC Test Result Flag Range Units Date 56437-8 1Troponin Joe العليl-mCnc 0.00 0.00-0.04 ng/mL 08/25/2019 21:00 Interpretive Nayana: 1 TROPONIN INTERPRETATION 0.00 - 0.04 ng/ml Normal 0.05 - 0.29 ng/ml [place] Zone, Uncertain for AMI Greater than 0.30 ng/ml Suggestive of AMI Performing Lab Footnotes:[facility] - [id number] - [address] [place] [address] ESTEVAN Wood LAKESHIAOMD1 Order: ABG (Arterial Blood Gas) Specimen Source: Body Site: Legend: (G, H) = High, (GG,HH,CH,#H) = Above High Threshold, (#,L) = Low, (##,CL,#L,LL) = Below Low Threshold, (C,CC,CA,#A,A) = Abnormal LOINC Test Result Flag Range Units Date 53862-0 1Test performance Oxi97,DevNC,Resp 08/25/2019 info XXX 26,Vol6L,SiteRRA 20:28 D 2744-1 1pH BldA 7.36 L 7.37-7.44 08/25/2019 20:28 2019-8 1pCO2 BldA 51.5 H 35.0-50.0 mmHG 08/25/2019 20:28 2703-7 1pO2 BldA 155.9 H 95.0-100.0 mmHG 08/25/2019 20:28 90030-6 1Base excess Bld-sCnc 3.0 -3.0-3.0 mmol./L 08/25/2019 20:28 1960-4 1HCO3 BldA-sCnc 29.10 21.00-32.00 mmol/L 08/25/2019 20:28 6-3 1CO2 BldA-sCnc 30.7 H 19.0-24.0 mmol/L 08/25/2019 20:28 82261-[address] BldA-sCnc 98.0 94.0-100.0 % 08/25/2019 20:28 718-7 1Hgb Bld-mCnc 15.5 12.0-16.0 gm/dL 08/25/2019 20:28 97097-3 1Gas + CO Pnl Bld 2.8 H 0.0-1.5 %THB 08/25/2019 20:28 Interpretive Nayana: 1Carbon Monoxide Range 1.5% - Suburban Non-Smokers 1.5- 5.0% - Smokers 5.0-9.0% - Heavy Smokers 20% - Moderate Symptoms 30% - Severe Symptoms 40-60% - May Occur 2615-3 1MetHgb MFr BldA 0.6 <=3.0 %THB 08/25/2019 20:28 74263-6 1OxyHgb MFr Bld 94.4 94.0-100.0 % 08/25/2019 20:28 Performing Lab Footnotes:[facility] - [id number] [place] [address] ESTEVAN ASHEROMD1 Microbiology Results w Susceptibilities Order: CULTURE BLOOD Specimen Source: Blood Body Site: BloodCultural Observations:Growth not [id number] Lab Footnotes:[facility] - [id number] [place] [address] ESTEVAN ASHEROMD1 Order: CULTURE BLOOD Specimen Source: Blood Body Site: BloodCultural Observations:Growth not [id number] Lab Footnotes:[facility] - [id number] - [address] [place] [address] ESTEVAN LINDERCIOMD1 Radiology Results Order: SHOULDER COMPLETE RTExam Completion Date:08/28/2019 17:33110/28/2018 6:35 PM RIGHT SHOULDER X-RAYS CLINICAL INFORMATION: -- PAIN, UNSPECIFIED COMPARISON: None. PROCEDURE: Three projections of the right shoulder were obtained. FINDINGS/ IMPRESSION: Hypertrophic degenerative changes are present at acromioclavicular joint. Osteophytes arise from the inferior aspect of the glenoid and is consistent with degenerative changes at the glenohumeraljoint. No acute abnormalities are present. Interpretation: Hypertrophic degenerative changes at acromioclavicular joint and also at the glenohumeral joint. END OF IMPRESSION [facility] submits Radiology results to [facility] and [facility] then provides those same results to [facility]. All results are available to [facility] and [facility] provider portal users. [facility] DICOM images are available to the [facility] provider portal users only. [facility] DICOM images are not available to the [facility] provider portal users. There is no current [facility] functionality allowing images to be available through the [facility] to [facility] connectivity. Electronically signed By: Elías Matute M.D. Read By: ELÍAS MATUTE Date: 08/29 08:38Order: MRI BRAIN W/O CONTRASTExam Completion Date:08/26/2019 15:5911 7:01 PM MR BRAIN WITHOUT CONTRAST CLINICAL INFORMATION: -- possible stroke COMPARISON: None. TECHNIQUE: Multiplanar multi-sequence MR imaging of the brain was performed without intravenous contrast. FINDINGS : CEREBRAL PARENCHYMA: Confluent non-specific zones of T2/FLAIR hyperintensity without mass effect in the periventricular white matter extend into the deep and subcortical white matter. No abnormal diffusion restriction to suggest an acute or subacute infarct is appreciated. No intracranial hemorrhage is evident. No intracranial mass is identified. The midlinestructures are preserved. The posterior fossa structures are normal. VENTRICLES AND EXTRA-AXIAL SPACES: The ventricles, sulci and fissures are normal in size and configuration for the patient's age. No extra-axial fluid collection is present. Flow voids are present within the major intracranial vessels. EXTRACRANIAL STRUCTURES: Polypoid mucosal thickening of the right maxillary sinus. The visualized mastoid air cells are clear. The orbits are normal. OTHER: Sequela of bilateral lens extractions. IMPRESSION: No evidence of acute or subacute intracranial infarct. No intracranial hemorrhage. Severe white matter changes most likely related to chronic microvascular ischemic disease. Chronic microvascular ischemic disease. END OF IMPRESSION I have personally reviewed the images and the Resident's/Fellow's interpretation and agree with or edited the findings. [facility] submits Radiology results to [facility] and [facility] then provides those same results to [facility]. All results are available to [facility] and [facility] provider portal users. [facility] DICOM images are available to the [facility] provider portal users only. [facility] DICOM images are not available to the [facility] provider portal users. There is no current [facility] cross-[facility] functionality allowing images fernando available through the [facility] to [facility] connectivity. Interpreted By: Palma Lopez D.O. Electronically signed By : La Levine MD Read By: LA LEVINE Date: 08/26/2019 21:21Order: CT-HEAD W/O CONTRAST (stroke protocol)Exam Completion Date:08/26/2019 15:411101/2019 4:[address] BRAIN WITHOUT CONTRAST CLINICAL INFORMATION: -- possible stroke COMPARISON: 02/23/2015 TECHNIQUE: CT of the brain was performed without intravenous contrast. Multiplanar reformations were acquired. Automated exposure control, adjustment of the mA and/or kV according to patient size, and/or iterative reconstruction techniques were utilized for radiation dose optimization. FINDINGS: BRAIN PARENCHYMA: Multiple hypodense area seen in the white matter. No mass effect or abnormal attenuation to suggest an acute or subacute transcortical infarction is appreciated. No intracranial hemorrhage is evident. No intracranial mass is identified. VENTRICLES AND EXTRA-AXIAL SPACES: The ventricles, sulci and fissures are normal in size and configuration for the patient's age. No extra-axial fluid collection is present. BONES: Intact. EXTRACRANIAL STRUCTURES: The visualized paranasal sinuses are clear. The visualized mastoid air cells are clear. OTHER:None IMPRESSION: Age-related small vessel disease otherwise unremarkable. END OF IMPRESSION [facility] submits Radiology results to [facility] and [facility] then provides those same results to [facility]. All results are available to [facility] provider portal users. [facility] DICOM images are available to the [facility] provider portal users only. [facility] DICOM images are not available to the [facility] provider portal users. There is no current [facility] cross-[facility] functionality allowing images to be available through the [facility] to [facility] connectivity. Electronically signed By: Rosio Bustillos Read By: THANG TRACEY Date: 08/26/2019 16:30Order: CHEST PORTABLE-SINGLEExam Completion Date:2018 20:1811 8:47 PM CHEST X-RAY CLINICAL INFORMATION: -- CHEST PAIN, UNSPECIFIED COMPARISON: None. PROCEDURE: A single frontal projection of the chest was obtained. FINDINGS: Tubes and Catheters: None. Central Airways: Normal. Lungs: Normal. Pleura/Pleural space: Normal. Heart and Mediastinum: Normal. Additional Findings: No acute or aggressive osseous changes noted. IMPRESSION: No acute cardiopulmonary disease. END OF IMPRESSION [facility] then provides those same results [facility]. All results are available to [facility] and [facility] provider portal users. [facility] DICOM images are available to the [facility] provider portal users only. [facility] DICOM images are not available to the [facility] provider portal users. There is no current [facility] cross-[facility] functionality allowing images to be available throughthe [facility] to [facility] connectivity. Electronically signed By: Estevan Valdez M.D. Read By: ESTEVAN VALDEZ Date: 08/25 21:06 Social History Code Code System Social History Observation Description Dates Observed 3276190 SNOMED CT Current Smoking Status Former smoker UNK AdministrativeGender Sex Assigned At Unknown Vital Signs Code Code System Vitals Value Date 8310-5 LOINC Body Temperature 98.1 [degF] 08/30/2019 8865-8 LOINC Pulse Rate 102 {beats}/min 08/30/2019 9279-1 LOINC Respiratory Rate 20 /min 08/30/2019 63715-6 LOINC O2% BldC Oximetry 98 % 08/30/2019 8480-6 LOINC BP Systolic 132 mm[Hg] 08/30/2019 8462-4 LOINC BP Diastolic 70 mm[Hg] 08/30/2019 88754-9 LOINC Weight 79.8 kg 08/27/2019 8302-2 LOINC Height 63 [in_i] 08/26/2019 Goals Section No data in the system Health Concerns No data in the systemEncounter Diagnosis Date Code Code System Diagnosis Status 251330312 SNOMED-CT Chronic obstructive pulmonary disease with acute Active lower respiratory infection Advance Directives *[facility]IO - CONSENT IS YES Directive Type Effective Date Kinesiology Professor Notes Supporting Document Name Address Phone No Directive Type 06/08/2016 9:59:48 Not Specified Not Specified Not Specified None No specified AM PT STATES NO ADVANCE DIRECTIVES Directive Type Effective Date Kinesiology Professor Notes Supporting Document Name Address Phone No Directive Type 08/26/2019 Not Specified Not Specified Not Specified None No specified 11:33:00 AM Encounters Encounter Diagnosis Location Date Chronic obstructive pulmonary disease with [facility] 2018 acute lower respiratory infection Family History Patient has no knowledge of family history Functional Status Code Functional Condition Code System Date Status Self care SNOMED CT 08/26/[address] 08/30/2019 Active Bathroom privileges SNOMED CT 08/30/[address] 08/30/2019 Active Needs further teaching SNOMED CT 08/26/2019 Active 4 - manage pain and encourage activity as SNOMED CT 08/30/2019 Active tolerated Continent SNOMED CT 08/27/2019 Active Assist with set up SNOMED CT 08/27/[address] feed [address]OM[address] CT 08/27/2019 Active 3 [facility] Active repositioning 3 - encourage active [facility] 08/[facility] Active 3 - wedge foam cushion if [facility] 08/28/2019 Active 3 - include family in interventions [facility] 08/28/2019 Active 085544983 [facility]ble [facility] wash [facility] 08/27/2019 Active 275354235 [facility] with [facility]ting [facility]) [facility] Active 448978774 Ability to verbalize understanding [facility] 08/30/2019 Active (observable entity) Immunizations Vaccine Code Code System Vaccine Name Date Status INFLUENZA VAC (65+ 08/27/2019 Not given (Medication HI-DOSE)(PF) Discontinued) 168 CVX Seasonal trivalent 08/28/2019 Not given (Medication influenza vaccine, Discontinued) adjuvanted, preservative free 168 CVX Seasonal trivalent 08/30/2019 Completed influenza vaccine, adjuvanted, preservative free Medical Equipment No data in the system Mental Status Code Cognitive Condition Code System Date Status Perrl [facility] 08/25/2019 Active [facility]ed x [address] [facility] 08/[facility]2019 Active Mild distress [facility] 08/25/2019 Active Alert [facility] 08/25/2019 Active 967932508 No speech problem (situation) [facility] 08/26/2019 Active 124177919 Firm pressure touch, function (observable [facility] 08/26/2019 Active entity) 633200427 Mentally alert [facility] 08/26/2019 Active 766412886 Oriented to time [facility] 08/26/2019 Active 807476571 Oriented to time (finding) [facility] 08/26/2019 Active [address] Oriented to place [facility] 08/26/[address] Active [address] (finding) [facility] 08/26/2019 Active 499642383 Oriented to person [facility] 08/26/2019 Active Assessment and Plan Assessments No data in the systemPlan Of Treatment No data in the systemPending Tests Test Start Date ECHO COMPLETE-TRANSTHORACIC 08/26/2019 01:45 CT-HEAD W/O CONTRAST 08/26/2019 15:55 EEG-ROUTINE 08/26/2019 16:00 Hospital Discharge Instructions Discharge InstructionsDischarge Diagnosisacute bronchitis, AECOPD, respiratory failure, syncope, right shoulder painDischarge DestinationDischarge to Home with Home Health ReferralFollow Up Appointmentplease call Spenser Gars[facility] for follow up appointment in 5-7 days of dischargeDiet at Homecardiac dietActivityactivity per PT and OT instructionsSpecial Instructionsplease call [phone] for smoking cessation assistance, home oxygen 3L via nasal cannula continuously , fall precautionsAll Personal Belongings, Valuables, Pre- Adm Meds Returned to Patient/FamilyyesMedicationsNew Medication List Provided AboveDischarge Instructions Read, Verbalized, and Acknowledged by: PatientPatients HOME MEDICATIONS returned to patient upon dischargeN/A Reason for Visit Reason for Visit ACUTE COPD EXACERBATION
[2019-10-14 16:08] VITALS: BP 142/75
== END 2019-10-14 16:05 | disposition home or self-care (01) ==
LOC: ED 14:09
DX: S16.1XXA Strain of muscle, fascia and tendon at neck level, initial encounter (principal); V48.5XXA Car driver injured in noncollision transport accident in traffic accident, initial encounter; Y92.410 Unspecified street and highway as the place of occurrence of the external cause; K21.9 Gastro-esophageal reflux disease without esophagitis; I10 Essential (primary) hypertension; Z86.73 Personal history of transient ischemic attack (TIA), and cerebral infarction without residual deficits; E11.9 Type 2 diabetes mellitus without complications; Z90.49 Acquired absence of other specified parts of digestive tract; Z90.710 Acquired absence of both cervix and uterus; Z90.89 Acquired absence of other organs; Z79.899 Other long term (current) drug therapy; Z91.040 Latex allergy status
CPT/HCPCS: 70450; 71045; 72125; 72170; 99282